=== PATIENT | male | born 2000 | race African-American/Black ===

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

== ENCOUNTER 2021-10-25 21:34 | Emergency (ER) | payer OTHER, SELFPAY | END 2021-10-25 22:25 | disposition home or self-care (01) | LOC: ERS 21:34 | DX: R05.9 Cough, unspecified (principal); F17.210 Nicotine dependence, cigarettes, uncomplicated | CPT/HCPCS: 99283 ==

== ENCOUNTER 2021-11-16 20:30 | Emergency (ER) | payer SELFPAY ==
[2021-11-16] MEDS ORDERED: Lidocaine 2% PF 5 ML VIAL ONE (21:33)
[2021-11-16] MEDS ORDERED: Bacitracin 1 PK ONE (22:10)
== END 2021-11-16 23:00 ==
LOC: ERS 20:30
DX: S61.411A Laceration without foreign body of right hand, initial encounter (principal); F17.210 Nicotine dependence, cigarettes, uncomplicated; W26.8XXA Contact with other sharp object(s), not elsewhere classified, initial encounter
CPT/HCPCS: 12001; J2001

== ENCOUNTER 2021-11-26 12:09 | Emergency (ER) | payer SELFPAY | END 2021-11-26 12:50 | disposition home or self-care (01) | LOC: ERS 12:09 | DX: S61.411D Laceration without foreign body of right hand, subsequent encounter (principal); F17.210 Nicotine dependence, cigarettes, uncomplicated ==